=== PATIENT | female | born 1945 | race Caucasian/White ===

== ENCOUNTER 2020-06-08 12:54 | Inpatient (IN) | payer OTHER ==
[~2020-06-08] VITALS: Ht 154.9 cm; Wt 59.0 kg
[~2020-06-08 12:54] MED LIST: AMOX1TAB5 PO; Levsin/Sl 0.125 MG TAB.SUBL SL
[2020-06-22] MEDS ORDERED: INTESTINEX680 M1 PO (18:10)
[2020-06-22] MEDS ORDERED: LEVSIN/SL0.125 MG SL (18:10)
[2020-06-25] MEDS ORDERED: PROTONIX40 MG PO (10:16)
[2020-06-25] MEDS ORDERED: AMOX-CLAV 875-1 EACH PO (10:16)
== END 2020-06-22 19:33 | disposition home or self-care (01) | DRG 330 ==
LOC: ER 12:54 → MEDI 21:29 → SURG 06-15 19:19
PROVIDERS: Obstetrics & Gynecology Gynecology; Surgery; ADMIT Internal Medicine; ATTEND Internal Medicine
PROC: 02HV33Z Insertion of Infusion Device into Superior Vena Cava, Percutaneous Approach (ICD-10-PCS; 2020-06-11)
PROC: 0D9H8ZZ Drainage of Cecum, Via Natural or Artificial Opening Endoscopic (ICD-10-PCS; 2020-06-15)
PROC: 0D1M4Z4 Bypass Descending Colon to Cutaneous, Percutaneous Endoscopic Approach (ICD-10-PCS; 2020-06-15)
PROC: 0DTJ4ZZ Resection of Appendix, Percutaneous Endoscopic Approach (ICD-10-PCS; 2020-06-15)
PROC: 0UT60ZZ Resection of Left Fallopian Tube, Open Approach (ICD-10-PCS; 2020-06-15)
PROC: 0UT10ZZ Resection of Left Ovary, Open Approach (ICD-10-PCS; 2020-06-15)
PROC: 0DTN4ZZ Resection of Sigmoid Colon, Percutaneous Endoscopic Approach (ICD-10-PCS; principal; 2020-06-15 13:00)
PROC: 0DTP4ZZ Resection of Rectum, Percutaneous Endoscopic Approach (ICD-10-PCS; 2020-06-15 13:00)
DX: K56.600 Partial intestinal obstruction, unspecified as to cause (principal); K57.32 Diverticulitis of large intestine without perforation or abscess without bleeding; K56.51 Intestinal adhesions [bands], with partial obstruction; N73.6 Female pelvic peritoneal adhesions (postinfective); N99.4 Postprocedural pelvic peritoneal adhesions; K56.691 Other complete intestinal obstruction; F43.21 Adjustment disorder with depressed mood; E87.6 Hypokalemia; R53.81 Other malaise